=== PATIENT | male | born 1950 | race Caucasian/White ===

== ENCOUNTER 2018-11-12 08:09 | Day surgery (SDC) | payer MEDICARE, OTHER ==
[~2018-11-12 08:09] MED LIST: Lactated Ringers 1,000 ML IV SCH
--- NOTE | 2018-11-12 09:22 | PCM.PREANE ---
Preanesthetic Assessment - Anesthesia/Transfusion/Family Hx Anesthesia History: Prior Anesthesia Without Reaction Other Type of Anesthesia Reaction Comment: "difficulty voiding after having anesthesia, & some nausea" Family History of Anesthesia Reaction: No Transfusion History: No Prior Transfusion(s) Intubation History: Unknown - Review of Systems General: No Symptoms Pulmonary: No Symptoms Cardiovascular: No Symptoms Gastrointestinal: No Symptoms, Other (h/o colon polyps 2010, and diverticulosis 2013) Neurological: No Symptoms Other: Reports: None - Physical Assessment O2 Sat by Pulse Oximetry: 94 Respiratory Rate: 16 Vital Signs: Last Vital Signs Temp 36.8 C 11/12/18 09:12 Pulse 88 11/12/18 09:12 Resp 16 11/12/18 09:12 BP 154/96 H 11/12/18 09:12 Pulse Ox 94 L 11/12/18 09:12 Height: 1.65 m Weight: 87.543 kg ASA Class: 2 Mental Status: Alert & Oriented x3 Airway Class: Mallampati = 2 Dentition: Reports: Normal Dentition Thyro-Mental Finger Breadths: 2 Mouth Opening Finger Breadths: 2 ROM/Head Extension: Full Lungs: Clear to Auscultation, Normal Respiratory Effort Cardiovascular: Regular Rate, Regular Rhythm - Allergies Allergies/Adverse Reactions: Allergies Allergy/AdvReac Type Severity Reaction Status Date / Time codeine Allergy Dizziness Verified 11/09/18 11:05 - Blood Blood Available: No - Anesthesia Plan Pre-Op Medication Ordered: None - Acknowledgements Anesthesia Type Planned: MAC Pt an Appropriate Candidate for the Planned Anesthesia: Yes Alternatives and Risks of Anesthesia Discussed w Pt/Guardian: Yes Pt/Guardian Understands and Agrees with Anesthesia Plan: Yes PreAnesthesia Questionnaire HEENT History: Reports: Hard of Hearing, Impaired Vision Other HEENT History: wears glasses, win hearing aids Cardiovascular History: Reports: High Cholesterol Gastrointestinal History: Reports: Colon Polyp, Diverticulosis, GERD Musculoskeletal History: Reports: Fracture Endocrine/Metabolic History: Reports: Obesity/BMI 30+ - Past Surgical History Head Surgeries/Procedures: Reports: None HEENT Surgical History: Reports: Other (See Below) Other HEENT Surgeries/Procedures: repair of cleft lip and palate GI Surgical History: Reports: Colonoscopy (x2, and ) Musculoskeletal Surgical History: Reports: Other (See Below) Other Musculoskeletal Surgeries/Procedures:: surgical repair of fx left wrist - SUBSTANCE USE Smoking Status *Q: Never Smoker Recreational Drug Use History: No - HOME MEDS Home Medications: Home Meds Multivitamin [Multivitamins] 1 tab PO DAILY 11/09/18 [History] Pantoprazole Sodium 40 mg PO DAILY 11/09/18 [History] atorvaSTATin Calcium [Atorvastatin Calcium] 40 mg PO DAILY 11/09/18 [History] - CURRENT (IN HOUSE) MEDS Current Meds: Current Medications Lactated Ringer's (Ringers, Lactated) 1,000 mls @ 125 mls/hr IV ASDIRECTED [facility] Last Admin: 11/12/18 09:11 Dose: 125 mls/hr
[2018-11-12] MEDS ORDERED: Midazolam 1 MG/ML 2 ML SDV ONE (10:33)
[2018-11-12] MEDS ORDERED: fentaNYL 100 MCG/2 ML SDV ONE (10:34)
[2018-11-12] MEDS ORDERED: Lidocaine 2% 5 ML SDV ONE (10:34)
[2018-11-12] MEDS ORDERED: Propofol 200 MG/20 ML SDV ONE (10:35)
--- NOTE | 2018-11-12 11:26 | PCM.OPNOTE ---
- General Post-Op/Procedure Note Date of Surgery/Procedure: 11/12/18 Operative Procedure(s): Colonoscopy with snare rectal polypectomy Pre Op Diagnosis: personal history of colon polyps Post-Op Diagnosis: Rectal polyp. Sigmoid diverticulos Anesthesia Technique: MAC (ASA II) Primary Surgeon: Satish Abad Condition: Critical Free Text/Narrative:: DICTATION [id number] CPT CODE 13142
[2018-11-12] MEDS ORDERED: Lactated Ringers 1,000 ML IV SCH (11:30)
--- NOTE | 2018-11-12 12:07 | OR ---
SURGEON: Satish Abad M.D. DATE OF PROCEDURE: 11/12/2018 OPERATION PERFORMED: Colonoscopy with snare rectal polypectomy. ANESTHESIA: MAC. ASA CLASSIFICATION: II. PREOPERATIVE DIAGNOSIS: Personal history of colon polyps. POSTOPERATIVE DIAGNOSES: 1. Rectal polyp. 2. Sigmoid diverticulosis. DESCRIPTION OF PROCEDURE: The patient was taken to the endoscopy room and positioned on the endoscopy table in the left lateral decubitus position. Time-out was called for appropriate identification of the patient and procedure. Monitored anesthesia care was provided. The colonoscope was inserted into the rectum and advanced with minimal difficulty to the cecum where the colonoscope was retroflexed to visualize the ascending colon from below. The cecum was identified by internal landmarks and external pressure. The cecum, ascending colon, hepatic flexure, transverse colon, splenic flexure, and descending colon showed no tumors, polyps, diverticula, or angiodysplastic changes. A few diverticula were encountered in the sigmoid colon. No stricture, spasm, or bleeding was noted. One polyp was encountered in the rectum at 20 cm. This was removed with the snare electrocautery and recovered. A small amount of bleeding was present, this was cauterized. The colonoscope was then retroflexed to visualize the anal orifice from above. No tumors, polyps, or acute hemorrhoidal changes were noted. The colonoscope was then straightened, the rectum aspirated, and the colonoscope removed. The patient tolerated the procedure well and was taken to recovery room in stable condition. BERHANE HOLLY /[id number]
== END 2018-11-12 12:25 | disposition home or self-care (01) ==
LOC: MW.SDS 08:09
PROVIDERS: ATTEND Surgery
DX: Z12.11 Encounter for screening for malignant neoplasm of colon (principal); D12.8 Benign neoplasm of rectum; K57.30 Diverticulosis of large intestine without perforation or abscess without bleeding; E66.9 Obesity, unspecified; Z68.32 Body mass index [BMI] 32.0-32.9, adult; E78.00 Pure hypercholesterolemia, unspecified; Z86.010 Personal history of colon polyps; Z79.899 Other long term (current) drug therapy; Z88.5 Allergy status to narcotic agent
CPT/HCPCS: 45385; J2001; J2250; J2704; J3010; J7120

== ENCOUNTER 2021-12-20 07:28 | Day surgery (SDC) | payer MEDICARE, OTHER ==
[2021-12-20] MEDS ORDERED: propofoL 50 ML ONE (07:30)
[2021-12-20] MEDS ORDERED: Lidocaine 2% 5 ML SDV ONE (08:52)
[2021-12-20] MEDS ORDERED: Ondansetron 4 MG/2 ML SDV ONE (08:52)
[2021-12-20] MEDS ORDERED: Lactated Ringers 1,000 ML IV SCH (09:45)
== END 2021-12-20 10:20 | disposition home or self-care (01) ==
LOC: MW.SDS 07:28
PROVIDERS: ATTEND Surgery
DX: D12.6 Benign neoplasm of colon, unspecified (principal); K57.30 Diverticulosis of large intestine without perforation or abscess without bleeding; K21.9 Gastro-esophageal reflux disease without esophagitis; K42.9 Umbilical hernia without obstruction or gangrene; H54.7 Unspecified visual loss; E78.00 Pure hypercholesterolemia, unspecified; E66.9 Obesity, unspecified; Z68.32 Body mass index [BMI] 32.0-32.9, adult; Z88.5 Allergy status to narcotic agent; Z98.890 Other specified postprocedural states; Z79.899 Other long term (current) drug therapy
CPT/HCPCS: 45378; J2405; J2704; J7120

== ENCOUNTER 2023-03-06 17:25 | Inpatient (IN) | payer MEDICARE, BC ==
[2023-03-06] MEDS ORDERED: Sodium Chloride 0.9% 10 ML Syringe FLUSH PRN (17:49)
[2023-03-06] MEDS ORDERED: Sodium Chloride 0.9% 2.5 ML Syringe FLUSH PRN (17:49)
[2023-03-06 18:13] LABS: BASOPHILS PERCENT AUTO 0.3 % (0.0-1.5); EOSINOPHILS ABSOLUTE AUTO 0.1 K/uL (0.0-0.7); EOSINOPHILS PERCENT AUTO 1.9 % (0.0-7.0); HEMATOCRIT 46.5 % (38.0-50.0); HEMOGLOBIN 16.2 g/dL (13.0-17.0); LYMPHOCYTES ABSOLUTE AUTO 0.5 K/uL (0.6-2.4); LYMPHOCYTES PERCENT AUTO 7.8 % (16.0-40.0); MEAN CORPUSCULAR HEMOGLOBIN 30.8 pg (27.0-32.0); MEAN CORPUSCULAR HGB CONC 34.8 g/dL (31.0-37.0); MEAN CORPUSCULAR VOLUME 88.4 fL (80.0-98.0); MONOCYTES ABSOLUTE AUTO 0.1 K/uL (0.0-0.8); MONOCYTES PERCENT AUTO 2.1 % (0.0-15.0); NEUTROPHILS ABSOLUTE AUTO 5.6 K/uL (1.4-5.7); NEUTROPHILS PERCENT AUTO 87.9 % (48.0-80.0); NRBC ABSOLUTE 0 K/uL; PLATELET COUNT,PLT 157 K/uL (150-400); RED BLOOD CELL COUNT 5.26 M/uL (4.50-5.90); WHITE BLOOD CELL COUNT,WBC 6.32 K/uL (4.0-11.0)
[2023-03-06] MEDS ORDERED: Sodium Chloride 0.9% 1,000 ML IV STA ×2 (18:33→20:42)
[2023-03-06 18:36] LABS: ALBUMIN 3.8 g/dL (3.4-5.0); BILIRUBIN TOTAL 1.9 mg/dL (0.2-1.0); CALCIUM 8.8 mg/dL (8.5-10.1); CARBON DIOXIDE,CO2 27.7 mmol/L (21.0-32.0); CREATININE 1.2 mg/dL (0.8-1.3); EST CRCL DRUG DOSING (CG) 50.95 mL/min; POTASSIUM,K 3.5 mmol/L (3.5-5.1); PROTEIN TOTAL,TP 7.5 g/dL (6.4-8.2)
[2023-03-06 18:39] LABS: APPEARANCE,URINE CLEAR; BILIRUBIN,URINE NEGATIVE (NEGATIVE); COLOR,URINE YELLOW; GLUCOSE,URINE NEGATIVE (NEGATIVE); KETONES,URINE NEGATIVE (NEGATIVE); LEUKOCYTE ESTERASE,URINE NEGATIVE (NEGATIVE); NITRITE,URINE NEGATIVE (NEGATIVE); OCCULT BLOOD,URINE NEGATIVE (NEGATIVE); PROTEIN,URINE NEGATIVE (NEGATIVE); UROBILINOGEN,URINE 0.2 EU/dL (<2.0)
[2023-03-06 18:51] LABS: MAGNESIUM 1.8 mg/dL (1.8-2.4); TSH ULTRASENSITIVE 0.97 uIU/mL (0.36-3.74)
[2023-03-06] MEDS ORDERED: Acetaminophen 500 MG Tab PO STA (19:36)
[2023-03-06] MEDS ORDERED: Magnesium Sulfate/Water 2 GM in Premix Bag 1 BAG IV STA (19:37)
[2023-03-06] MEDS ORDERED: Piperacillin/Tazobactam 3.375 GM in Sodium Chloride 0.9% 100 ML IV STA (20:44)
[2023-03-06] MEDS ORDERED: VANCOmycin 1.75 GM/350 ML 1.75 GM in Premix Bag 1 BAG IV ONE (21:00)
[2023-03-06] MEDS ORDERED: Iopamidol 755 MG/ML 500 ML Multipack Bottle IVPUSH ONE (21:02)
[2023-03-06 21:38] LABS: INR 0.98 (0.86-1.11)
[2023-03-07] MEDS: Azithromycin 500 MG in Sodium Chloride 0.9% 250 ML IV SCH ×2 (00:06→23:08)
[2023-03-07] MEDS: Enoxaparin 40 MG/0.4 ML Syringe SUBCUT SCH ×2 (00:07→23:08)
[2023-03-07] MEDS: Piperacillin/Tazobactam 3.375 GM in Sodium Chloride 0.9% 100 ML IV SCH ×4 (02:31→20:19)
[2023-03-07 05:47] LABS: BASOPHILS PERCENT AUTO 0.2 % (0.0-1.5); EOSINOPHILS PERCENT AUTO 0.3 % (0.0-7.0); HEMATOCRIT 42.1 % (38.0-50.0); HEMOGLOBIN 14.4 g/dL (13.0-17.0); LYMPHOCYTES ABSOLUTE AUTO 0.4 K/uL (0.6-2.4); LYMPHOCYTES PERCENT AUTO 4.1 % (16.0-40.0); MEAN CORPUSCULAR HEMOGLOBIN 30.3 pg (27.0-32.0); MEAN CORPUSCULAR HGB CONC 34.2 g/dL (31.0-37.0); MEAN CORPUSCULAR VOLUME 88.4 fL (80.0-98.0); MONOCYTES ABSOLUTE AUTO 0.5 K/uL (0.0-0.8); MONOCYTES PERCENT AUTO 5.4 % (0.0-15.0); NEUTROPHILS ABSOLUTE AUTO 8.6 K/uL (1.4-5.7); NRBC ABSOLUTE 0 K/uL; PLATELET COUNT,PLT 150 K/uL (150-400); RED BLOOD CELL COUNT 4.76 M/uL (4.50-5.90); WHITE BLOOD CELL COUNT,WBC 9.52 K/uL (4.0-11.0)
[2023-03-07 06:05] LABS: CALCIUM 7.5 mg/dL (8.5-10.1); CARBON DIOXIDE,CO2 22.9 mmol/L (21.0-32.0); CREATININE 1.3 mg/dL (0.8-1.3); EST CRCL DRUG DOSING (CG) 47.03 mL/min; POTASSIUM,K 3.9 mmol/L (3.5-5.1)
[2023-03-07] MEDS: Pantoprazole 40 MG Tab.CR PO SCH (06:30)
[2023-03-07] MEDS: Acetaminophen 325 MG Tab PO PRN ×2 (08:17→16:07)
[2023-03-07] MEDS ORDERED: atorvaSTATin 40 MG Tab PO SCH ×2 (09:00→21:00)
[2023-03-07 13:39] LABS: A/G RATIO 0.9 (0.9-1.6); ALBUMIN 3.2 g/dL (3.4-5.0); BILIRUBIN DIRECT 0.4 mg/dL (0.0-0.5); BILIRUBIN INDIRECT 1.7; BILIRUBIN TOTAL 2.1 mg/dL (0.2-1.0); PROTEIN TOTAL,TP 6.6 g/dL (6.4-8.2)
[2023-03-08] MEDS: Piperacillin/Tazobactam 3.375 GM in Sodium Chloride 0.9% 100 ML IV SCH ×2 (02:33→07:58)
[2023-03-08] MEDS: Pantoprazole 40 MG Tab.CR PO SCH (06:30)
== END 2023-03-08 11:10 | disposition home or self-care (01) | DRG 195 ==
LOC: MW.ED 17:25 → MW.MS 22:01 → OBSVTOIN 03-08 10:33
PROVIDERS: ADMIT Internal Medicine; ATTEND Internal Medicine
DX: J18.9 Pneumonia, unspecified organism (principal); E86.0 Dehydration; K21.9 Gastro-esophageal reflux disease without esophagitis; E78.5 Hyperlipidemia, unspecified; K57.30 Diverticulosis of large intestine without perforation or abscess without bleeding; N40.0 Benign prostatic hyperplasia without lower urinary tract symptoms; R91.8 Other nonspecific abnormal finding of lung field; R25.1 Tremor, unspecified; E66.9 Obesity, unspecified; R51.9 Headache, unspecified; E78.00 Pure hypercholesterolemia, unspecified; Z88.8 Allergy status to other drugs, medicaments and biological substances; Z79.899 Other long term (current) drug therapy; Z20.822 Contact with and (suspected) exposure to COVID-19; Z68.30 Body mass index [BMI] 30.0-30.9, adult
CPT/HCPCS: 36415 ×2; 70450; 71275; 74177; 80048; 80053; 80076; 81003; 82947; 83605; 83690; 83735; 84443; 84484; 85025 ×2; 85610; 86788; 86789; 87040 ×2; 93005; 96361; 96365; 96367; 99285; A9270 ×6; J0456 ×2; J1650 ×2; J2543 ×7; J3370; J3475; J3490 ×8; J7030 ×2; J7050 ×2; Q9967; U0002; 96366; 96368; 96372; 96376; 99221; 99231; 99239; G0378